=== PATIENT | female | born 1990 ===

== ENCOUNTER 2019-12-24 07:00 | Day surgery (SDC) | payer OTHER ==
[2019-12-25] MEDS ORDERED: PERCOCET 5-3251 EACH PO (12:04)
== END 2019-12-24 13:00 | disposition home or self-care (01) ==
LOC: CIR.AMB 07:00
PROVIDERS: ATTEND Specialist
DX: N80.1 Endometriosis of ovary (principal); N83.11 Corpus luteum cyst of right ovary; Z20.828 Contact with and (suspected) exposure to other viral communicable diseases

== ENCOUNTER 2021-02-21 19:21 | Emergency (ER) | payer OTHER ==
[~2021-02-21] VITALS: Ht 160 cm; Wt 67.1 kg
[~2021-02-21 19:21] MED LIST: PERCOCET 5-3251 EACH PO
[2021-02-21] MEDS ORDERED: NITROFURANTOIN100 MG PO (23:10)
== END 2021-02-22 00:37 | disposition home or self-care (01) ==
LOC: ER 19:21
DX: N83.291 Other ovarian cyst, right side (principal); R10.2 Pelvic and perineal pain